=== PATIENT | male | born 1945 | race Two or more races ===

== ENCOUNTER 2022-01-15 11:31 | Observation (INO) | payer MEDICARE ==
[~2022-01-15] VITALS: Ht 167.6 cm; Wt 54.4 kg
[2022-01-15 13:09] LABS: Albumin, Blood 2.3 g/dL (3.4-5.0); Albumin/Globulin Ratio 0.8 (0.8-1.8); Bilirubin, Total 0.5 mg/dL (0.1-1.0); Bun/Creatinine Ratio 17.6 (12.0-20.0); Calcium, Blood 8.4 mg/dL (8.5-10.1); Creatinine, Blood 0.85 mg/dL (0.60-1.20); Magnesium, Blood 2.7 mg/dL (1.6-2.4); Potassium, Blood 3.6 mmol/L (3.5-5.5); Thyroid Stimulating Hormone 0.612 uIU/mL (0.360-4.800); Total Protein, Blood 5.3 g/dL (6.4-8.2)
[2022-01-15 13:17] LABS: BASOPHILS ABSOLUTE AUTO 0.03 K/mm3 (0.00-0.23); BASOPHILS PERCENT AUTO 0 % (0-2); EOSINOPHILS PERCENT AUTO 0 % (0-6); Hematocrit 44.1 % (37.0-53.0); Hemoglobin 14.5 g/dL (13.5-17.5); IMMATURE GRAN ABSOLUTE AUTO 0.08 K/mm3 (0.00-0.10); IMMATURE GRAN PERCENT AUTO 1 % (0-1); LYMPHOCYTES ABSOLUTE AUTO 0.68 K/mm3 (0.84-5.20); LYMPHOCYTES PERCENT AUTO 6 % (21-46); MONOCYTES ABSOLUTE AUTO 0.79 K/mm3 (0.16-1.47); MONOCYTES PERCENT AUTO 7 % (4-13); Mean Corpuscular HGB 31.1 pg (26.0-34.0); Mean Corpuscular HGB Conc 32.9 g/dL (31.5-36.5); Mean Corpuscular Volume 95 fL (80-100); Mean Platelet Volume 10.4 fL (9.1-12.4); NEUTROPHILS ABSOLUTE AUTO 9.48 K/mm3 (1.96-9.15); NEUTROPHILS PERCENT AUTO 86 % (41-73); Platelet Count 232 K/mm3 (150-400); RDW Coefficient Variation 14.8 % (11.7-14.2); RDW Standard Deviation 51.9 fL (35.1-46.3); Red Blood Cell Count 4.66 M/mm3 (4.30-5.90); White Blood Cell Count 11.06 K/mm3 (4.00-11.30)
[2022-01-15 13:30] LABS: Source, Urine Foley catheter
[2022-01-15 13:41] LABS: Appearance, Urine Hazy (Clear); Bilirubin, Urine Neg (Neg); Blood, Urine 3+ (Neg); Color, Urine Yellow (P-Yellow); Glucose Qualitative, Urine Neg (Neg); Ketones, Urine 1+ (Neg); Leukocyte Esterase, Urine Neg (Neg); Nitrite, Urine Neg (Neg); Protein, Urine 1+ (Neg); Urobilinogen, Urine NORM (Normal)
[2022-01-15 14:37] LABS: Renal Epithelial Few /hpf (0-Rare); Squamous Epithelial Cells Few /hpf (Few)
[2022-01-15 14:38] LABS: Mucus Light (0-Heavy)
[2022-01-15 14:39] LABS: Bacteria Few /hpf
[2022-01-15] MEDS ORDERED: METO100 PO (18:37)
[2022-01-15] MEDS ORDERED: ADALAT CC60 M1 PO (18:38)
[2022-01-15] MEDS ORDERED: LIPITOR80 MG PO ×2 (18:38)
--- NOTE | 2022-01-15 23:00 | NUR ---
PT ARRIVED TO THE FLOOR VIA GURNEY D/T GENERALIZED WEAKNESS. HE IS A/OX 2-3, AND WAS ABLE TO ANSWER SOME QUESTIONS, BUT NOT A GREAT HISTORIAN. PT DID NOT HAVE ANY C/O PAIN, SOB, NAUSEA, OR DIZZINESS, BUT DID HAVE C/O COLDNESS. HE INITIALLY WAS IMPULSIVE TRYING TO GET OOB, BUT SOON WAS CALM. ALTHOUGH CONFUSED, HE IS REDIRECTABLE AND FOLLOWS DIRECTIONS. AT THIS POINT, HE NEEDS TO BE A 2 PA, GAIT BELT, W/ FWW FOR ANY AMBULATION. INTEGUMENT IS FRAILE, BLE SCALING, AND SOME SMALL BLISTERS ON HIS RIGHT ROCHA. THERE ARE ALSO SOME REDDENED SPOTS DOWN HIS SPINE. LOWER EXTRMITIES HAVE SOME 1+ EDEMA. THE PT DID HAVE SOME INCONTINENCE, BUT WAS CLEANED UP AND NOW RESTING. THE BED IS IN THE LOWEST POSITION AND ALARM IS SET FOR PT SAFETY. WE'LL CONTINUE TO MONITOR.
[2022-01-16 05:20] LABS: BASOPHILS ABSOLUTE AUTO 0.06 K/mm3 (0.00-0.23); BASOPHILS PERCENT AUTO 1 % (0-2); EOSINOPHILS ABSOLUTE AUTO 0.01 K/mm3 (0.00-0.68); EOSINOPHILS PERCENT AUTO 0 % (0-6); Hematocrit 39.2 % (37.0-53.0); Hemoglobin 12.9 g/dL (13.5-17.5); IMMATURE GRAN ABSOLUTE AUTO 0.05 K/mm3 (0.00-0.10); IMMATURE GRAN PERCENT AUTO 1 % (0-1); LYMPHOCYTES ABSOLUTE AUTO 1.13 K/mm3 (0.84-5.20); LYMPHOCYTES PERCENT AUTO 11 % (21-46); MONOCYTES ABSOLUTE AUTO 0.87 K/mm3 (0.16-1.47); MONOCYTES PERCENT AUTO 8 % (4-13); Mean Corpuscular HGB 31.1 pg (26.0-34.0); Mean Corpuscular HGB Conc 32.9 g/dL (31.5-36.5); Mean Corpuscular Volume 95 fL (80-100); Mean Platelet Volume 10.9 fL (9.1-12.4); NEUTROPHILS ABSOLUTE AUTO 8.21 K/mm3 (1.96-9.15); NEUTROPHILS PERCENT AUTO 80 % (41-73); Platelet Count 230 K/mm3 (150-400); RDW Coefficient Variation 14.6 % (11.7-14.2); Red Blood Cell Count 4.15 M/mm3 (4.30-5.90); White Blood Cell Count 10.33 K/mm3 (4.00-11.30)
[2022-01-16 06:00] LABS: Albumin/Globulin Ratio 0.7 (0.8-1.8); Bilirubin, Total 0.8 mg/dL (0.1-1.0); Bun/Creatinine Ratio 17.5 (12.0-20.0); Calcium, Blood 7.9 mg/dL (8.5-10.1); Creatinine, Blood 0.86 mg/dL (0.60-1.20); Potassium, Blood 2.9 mmol/L (3.5-5.5)
--- NOTE | 2022-01-16 06:02 | NUR ---
SHIFT SUMMARY: PT DID NOT HAVE ANY CHANGES SINCE ADMISSION AROUND 2300 01/18. HE DID HAVE ONE OCCURRENCE OF INCONTINENCE AND A FULL BED CHANGE WAS DONE. PT REMAINS VERY FATIGUED. BED ALARM IS SET AND WE'LL CONTINUE TO DO FREQUENT MONITORING.
--- NOTE | 2022-01-16 17:23 | NUR ---
SHIFT SUMMARY PATIENT DENIES PAIN, NAUSEA, AND SHORTNESS OF BREATH. PATIENT IS A ONE PERSON FWW FOR TRANSFERS. PATIENT WORKED WITH PT, BUT DID NOT WANT TO AMBULATE. LATER IN DAY, PATIENT WOULD GET UP AND AMBULATE TO BATHROOM WITHOUT USING CALL LIGHT. PATIENT GAIT IS WEAK AND UNSTEADY. PATIENT CAN BE HARD TO REDIRECT. PATIENT EDUCATED ON USE OF CALL LIGHT USE. PATIENT A&O TO SELF FOR MOST OF SHIFT. PATIENT COULD OCCASSIONALLY TELL ME HE WAS IN [place] [address]. PATIENT IS EATING AND DRINKING WELL. PATIENT IS PLEASANT AND COOPERATIVE WITH CARE.
--- NOTE | 2022-01-17 05:05 | NUR ---
SHIFT SUMMARY: PT IS A/OX SELF. HE DOES HAVE SOME SMALL, COHERENT CONVERSATION, BUT SOME NON-SENSICAL CONVO ALSO. HE IS MUCH MORE STEADY ON HIS FEET, BUT FOR SAFETY REASONS NEEDS A SBA AND FWW TO THE BR. HE DOES NOT USE HIS CALL LIGHT AND CAN BE QUICK TO GET UP WHEN HE NEEDS TO VOID. A NEW IV WAS INSERTED IN HIS RT. FOREARM, THE TWO PREVIOUS IV'S WERE REMOVED THIS SHIFT. THE PT'S METOPROLOL WAS HELD @ 2100 D/T A LOW SYSTOLIC BP AND THE TABLET IS IN THE PT MEDICATION DRAWER. THE BED IS IN THE LOWEST POSITION AND THE ALRM IS SET.
[2022-01-17 05:40] LABS: Bun/Creatinine Ratio 24.5 (12.0-20.0); Calcium, Blood 7.8 mg/dL (8.5-10.1); Creatinine, Blood 0.82 mg/dL (0.60-1.20); Potassium, Blood 3.1 mmol/L (3.5-5.5)
--- NOTE | 2022-01-17 18:17 | NUR ---
CHANGED ROOM/SHIFT SUMMARY PATIENT DENIES PAIN, NAUSEA, AND SHORTNESS OF BREATH. EARLY IN THE SHIFT PATIENT CONTINUED TO GET OUT OF BED AND WALK AROUND. PATIENT UNSTEADY. PATIENT WAS VERY HARD TO REDIRECT. NOTIFIED. NEW ORDERS. PATIENT EDUCATED PUNCHBOARD ASSEMBLER LIGHT USE. PATIENT CONTINUED TO GET OUT OF BED WITHOUT CALLING. PATIENT CONTINUED TO GET OUT OF BED IN AFTERNOON. PATIENT VERY DIFFICULT TO REDIRECT, PATIENT DOES NOT FOLLOW DIRECTIONS. PATIENT IS A&O TO SELF. PATIENT PULLING AT IV. MEDICATED WITH PRN. PATIENT IS EATING AND DRINKING WELL. PATIENT IS VERY PLEASANT. MOVED TO ROOM 346, REPORT GIVEN TO PRABHU HAYDEN. BELONGINGS SENT WITH PATIENT. IV INTACT AND INFUSING.
--- NOTE | 2022-01-17 18:29 | NUR ---
SHIFT SUMMARY: ASSUMED CARE OF PATIENT UPON HIS TRANSFER FROM ROOM 310. RECEIVED REPORT FROM Clotilde LEE RN. PATIENT IS A&O TO SELF, PLEASANT. D5W+0.45 NS INFUSING AT 75 ML/HR. SETTLED IN TO NEW ROOM, CALL LIGHT IN REACH.
--- NOTE | 2022-01-18 03:58 | NUR ---
SHIFT SUMMARY 76 YR M ADMITTED ON 12/15/21 FOR ALTERED LEVEL OF CONCIOUSNESS. FULL CODE. PT HAS SLEPT FOR MOST OF THIS SHIFT. HE IMPULSIVELY GOT OUT OF BED TWICE TO USE THE RESTROOM BUT WAS OTHERWISE COOPERATIVE AND PLEASANT. HE IS ORIENTED TO SELF BUT OTHERWISE SEEMS CONFUSED. BED IN LOW POSITION AND CALL LIGHT WITHIN REACH. HE WILL BE WAITING FOR PLACEMENT.
[2022-01-18 05:31] LABS: Bun/Creatinine Ratio 17.5 (12.0-20.0); Calcium, Blood 7.7 mg/dL (8.5-10.1); Creatinine, Blood 0.68 mg/dL (0.60-1.20); Potassium, Blood 3.5 mmol/L (3.5-5.5)
--- NOTE | 2022-01-18 10:55 | NUR ---
STATES LEG PAIN, BUT REFUSED PAIN MED. STATES IS TOLERABLE
--- NOTE | 2022-01-18 16:46 | NUR ---
PT MOSTLY PLEASANT TODYA. HAS ASKED REPEATEDLY FOR HIS SWEATER/JACKET. THIS HAS BEEN LOCKED IN HIS CLOSET, IT IS STRONG WITH URINE SMELL. HE CONTINUES TO TRY TO GET IT FROM THE CLOSET, EVEN AFTER HE SMELLS IT IS URINE SOAKED. IT WOULD BE TOO MUCH HEALTH RISK TO WEAR THIS AT THIS TIME. NO OTHER CONCERNS NOTED. EKG RUN PER DR YORK AND RESULTS CALLED TO DR. WASHINGTON IN LOW POISITION, CALL LITE IN REACH, BED ALARM ON FOR ELSI
--- NOTE | 2022-01-19 04:10 | NUR ---
SHIFT SUMMARY ADMITTED FOR AMS. FULL CODE. PLAN IS FOR PLACEMENT. A&O TO SELF ONLY. DEHYDRATED & HYPERNATREMIC. AWAITING MORNING LABS. PT IS CONFUSED AND IMPULSIVE. PT DOES NOT CALL FOR ASSISTANCE OR USE CALL BUTTON. PT PULLED IV OUT AGAIN. NEW IV PLACED PT IS RECEIVING IV FLUIDS. PT FREQUENTLY EXITS THE BED TO USE THE RESTROOM - URGENCY & FREQUENCY NOTED. URINE IS EXTREMELY STRONG SMELLING.
[2022-01-19 05:57] LABS: Bun/Creatinine Ratio 14.3 (12.0-20.0); Calcium, Blood 7.6 mg/dL (8.5-10.1); Creatinine, Blood 0.77 mg/dL (0.60-1.20); Potassium, Blood 3.8 mmol/L (3.5-5.5); Prealbumin, Blood 13.5 mg/dL (20.0-40.0)
--- NOTE | 2022-01-19 18:42 | NUR ---
PATIENT IS ALERT AND ORIENTED TO SELF AND FOLLOWING DIRECTIONS. HE IS IMPULSIVE AND WILL GET OOB WITHOUT ASSISTANCE. MEPILEX WAS PLACED ON BOTH OF HIS HEELS. SHOWERED TODAY. NO NEW CONCERNS TODAY. WILL CONTINUE TO MONITOR
--- NOTE | 2022-01-20 03:26 | NUR ---
BRAKE LINING DRILLER SUMMARY PT AAO TO SELF ONLY, FOLLOWS DIRECTION AT TIMES BUT IS OFTEN DIFFICULT TO REDIRECT WHEN PT IS FOCUSED ON SOMETHING. BED ALARM ON FOR SAFETY PT IS IMPULSIVE AND ATTEMPTS TO GET OOB REGULARLY WITHOUT ASSIST. PT IS FAIRLY STEADY ON HIS FEET BUT REQUIRES ASSIST WITH HIS IV PUMP PT WILL ATTEMPT TO WALK AROUND WITH NO REGARD TO IV LINE. PT HAS VOIDED MULTIPLE TIMES TONIGHT WELL HAD A BM. VSS, WILL CONTINUE TO MONITOR.
--- NOTE | 2022-01-20 17:40 | NUR ---
SHIFT SUMMARY PATIENT ALERT AND ORIENTED TO SELF, PLEASANTLY CONFUSED. PATIENT HAS BEEN TRYING TO LOCATE THEIR SHIRT AND TRAILOR TODAY. PATIENT WILL GET OUT OF BED WITHOUT CALLING. PRETTY STEADY ON THEIR FEET. PATIENT HAD A COGNITIVE SCREEN TODAY BY OT. NO ACUTE CHANGES. PATIENT CURRENTLY IN BED. CALL LIGHT WITHIN REACH. BED ALARM ON.
--- NOTE | 2022-01-20 22:45 | NUR ---
PATIENT HAS BEEN ORIENTED ONLY TO SELF AND IS MORE DIFFICULT TO REDIRECT. HE IS SETTING OFF THE BED ALARM EVERY 5-10 MINUTES. MOST OFTEN THE PATIENT DOES NOT HAVE ANY REASON FOR GETTING OOB. HE IS NOW WANDERING THE HALLWAY AND TRYING TO GO INTO OTHER PT'S ROOMS. IT TOOK TWO RNs TO REDIRECT HIM BACK TO HIS ROOM AND WITHIN MINUTES OF BEING BACK IN BED HE WAS UP AGAIN. DUE TO POSSIBLE INJURY TO HIMSELF, INJURY TO STAFF, AND NOT BEING REDIRECTABLE AN ORDER FOR A MARY VEST WAS INITIATED. THE RN AND PUPIL PERSONNEL WORKER WILL CONTINUE TO MONITOR.
--- NOTE | 2022-01-21 01:00 | NUR ---
THE PT CONTINUES TO TRY TO GET OOB WITH THE MARY VEST IN PLACE. HE IS NOW ATTEMPTING TO UNTIE THE VEST FROM THE BED. A NEW ORDER FOR SOFT RESTRAINTS IS IN PLACE. WE'LL CONTINUE TO MONITOR PT THE REMAINDER OF THE SHIFT.
--- NOTE | 2022-01-21 05:30 | NUR ---
SHIFT SUMMARY: PT IS PLEASANTLY CONFUSED (A/OX1), BUT IS BECOMING MORE DIFFICULT TO REDIRECT. HE WILL GET OOB AND WANDER; AT TIMES HE TRIES TO GO INTO OTHER PATIENT'S ROOMS. HE DID INITIALLY REQUIRE A MARY VEST, BUT ATTEMPTED TO UNTIE IT FROM THE BED. A NEW ORDER WAS PUT IN FOR SOFT WRIST, 4 RAILS AND A MARY. HE DOES HAVE MEPILEX DRESSINGS ON HIS HEELS BILATERALLY THAT ARE CDI. HIS BED IS IN THE LOWEST POSITION AND THE ALARM IS SET FOR SAFETY.
--- NOTE | 2022-01-21 16:19 | NUR ---
SHIFT SUMMARY THE PATIENT IS ALERT TO SELF, PLEASANT AND COOPERATIVE WITH CARE. REDIRECTABLE, BUT DOES BECOME FIXATED ON TASKS. PATIENT DOES NOT CALL APPROPRIATELY. THE PATIENT TAKES MEDS WHOLE WITH WATER. CONTINENT/ INCONTINENT MEPILIX REPLACED ON COCCYX AND HEELS TODAY. PATIENT HAS OVERGROWN TOE NAILS. THE PATIENT HAD A HARD TIME SLEEPING LAST NIGHT. PRN SEROQUEL GIVEN THIS AM, PATIENT HAS SLEPT VERY LITTLE. NO ACUTE CHANGES. BED IN LOWEST POSITION, AND BED ALARM IS ON.
--- NOTE | 2022-01-22 05:30 | NUR ---
SHIFT SUMMARY PT HAS BEEN VERY AGITATED ALL NIGHTS. HE RECIEVED HIS SEROQUEL, BUT WAS STILL UNCOOPRATIVE AND WAS IN SOFT WRIST RESTRAINTS FOR AN HOUR. WE THEN TOOK THEM OFF AND HE IS UNABLE TO SIT STILL AND MUST CONSTANTLY BE REMINDED TO STOP WIGGLING OUT OF HIS POSY AND DANGLING HIS FETT. HE IS COMBATIVE AND NOT REDIRECTABLE.
--- NOTE | 2022-01-22 16:10 | NUR ---
DAYSHIFT SUMMARY No acute changes to patient status this shift, awaiting decision for placement or DC home. Patient oriented to self, cooperative, pleasant this shift. Removed dav restraints this morning, pt uses call-light sometimes, but gets OOB without help. Steady on feet, wants staff to encourage pt to get out of room & walk hallway. No behaviors observed this shift. Vitals stable, no other concerns at this time.
--- NOTE | 2022-01-22 20:06 | NUR ---
PT BEGAN SHIFT VERY IRRITATED. WLAKING AROUND HALLS TRYING TO ENTER OTHER PTS ROOMS. NOT REDIRECTABLE, PUSHED BACK AGAISNT STAFF WHEN THEY ATTEMPT TO HELP HIM BACK TO HIS ROOM. ORDERED ZYPREXA PRN FOR AGITATIONS. WILL CONTINUE TO GAUGE BEHAVIORAL ISSUES
--- NOTE | 2022-01-23 04:52 | NUR ---
SHIFT SUMMARY PT HAS BEEN AGITATED THIS EVENING AND WAS IN RESTRAINTS UNTIL 0000. HE HAS BEEN UP FREQUENTLY WANDERING AROUND THIS EVENING, BUT RETURNS TO BED STATING HE IS COLD. SEE NOT ABOUT SEDATION. HE IS AXO TO SELF.AWAITING PLACEMENT AND POSSIBLE GAURDIANSHIP.
[2022-01-23 12:14] LABS: Bun/Creatinine Ratio 17.4 (12.0-20.0); Calcium, Blood 8.5 mg/dL (8.5-10.1); Creatinine, Blood 0.69 mg/dL (0.60-1.20); Potassium, Blood 3.3 mmol/L (3.5-5.5)
--- NOTE | 2022-01-23 16:40 | NUR ---
DAYSHIFT SUMMARY optical glass silverer reported patient was awake most night, wandering/unable to redirect behaviors. Patient sleeping comfortably this morning, he got up late this morning and had breakfast. Patient cooperative & pleasant during the day, occasionally will try wandering into other rooms, and staff redirect. Reported differences in behaviors to MD. MD SANTOS'd Seroquel & ordered Zyprexa PO HS. No acute changes to patient status, awaiting placement. Vitals stable.
--- NOTE | 2022-01-24 03:05 | NUR ---
Pt has been reported to have severe Sundowning by day shift & he bagan intrusive wandering prior to HS meds. Gave 5 mg odt zyprexa for aggitated wandering. Within 2 hours PT was wandering & was unredirectable despite several staff attempting to get PT to go back to his own room as he was very aggressivly trying to enter a droplet contact isolation room, also attempting to leave special care unit pushing on locked door to leave. PT had to be physically escorted back to his own room. He did not attempt to assult staff as they escorted him gently but firmly to own room. Hospitalist TECHNICAL INSPECTOR Sinpu contacted & order to give 2.5 mg iv haldol then repeat 2.5 mg IV haldol 20 mins later if PT still agitated. RX given x 2 for total of 5 mg IV haldol & PT still up & down in room multiple times but no attempts to leave his room. He was up to the bathroom multiple times to void. drank ensure shake with setup & ate snacks. Bed alarm set due to PT saying he feels weak, assisted with tioleting & pullups change. Medicated for CO gen pain with tylenol 650 mg with helpful effect. Resting quietly with fall & wandering precautions in place. PT says he is [place] but denied services. PT states hx of several recent strokes but no hemiplegigia noted. Also says his ex significant other left him after strokes. Unsure of support system but PT very emaciated with malnutrition listed as diagnosis. He had 2 ensures on dinner tray & drank both.
[2022-01-24 12:43] LABS: Calcium, Blood 8.7 mg/dL (8.5-10.1); Creatinine, Blood 0.65 mg/dL (0.60-1.20); Magnesium, Blood 2.1 mg/dL (1.6-2.4)
--- NOTE | 2022-01-24 18:19 | NUR ---
SHIFT SUMMARY: PT A/O TO SELF ONLY THROUGHOUT THE DAY. PT WAS SLEEPY THIS MORNING BUT ONCE AWAKE HE WAS RE-ORIENTED AND WAS PLEASANT AND COOPERATIVE WITH CARES. HE IS STABLE ON HIS FEET AND IS STANDBY ASSIST FOR SAFETY. HE IS EATING WELL AND DRINKING FLUIDS WELL. PT WAS WORRIED ABOUT GETTING A PACK OF CIGARETTES TODAY AND ORDER FOR NICOTINE PATCH RECIEVED AFTER EXPLAINING TO PT THIS IS NON SMOKING CAMPUS AND PT AGREED TO PATCH. AROUND 5 PM PT BEGAN USING CALL LIGHT EXCESSIVELY REQUESTING TO TALK TO DR. CHAUHAN. WHEN ASKED WHAT HIS CONCERNS WERE HE KEPT SAYING HE NEEDED TO TALK TO HER AND ALSO THAT HE NEEDED TO GO GET A PACK OF CIGARETTES. PT REMINDED HE HAD A NICOTINE PATCH AND HE APPEARED TO BE APPEASED BY EXPLANATION BUT THEN WOULD USE CALL LIGHT WITHIN 10 MINUTES REQUESTING THE SAME INFORMATION. PT ASSESSED FOR PAIN AND HE REPORTED HE HAD 10/10 PAIN "ALL OVER". PAINAD WAS 4/10 DUE TO REPORTED PAIN AND FURROWED BROW. PT MEDICATED WITH TYLENOL AND ALSO GAVE OLANZAPINE SCHEDULED AT 1900 DUE TO S/S OF AGITATION. PT EATING DINNER AT THIS TIME AND IS CALM AND HAS NOT BEEN REQUESTING FURTHER CONTACT WITH DR. CHAUHAN AT THIS TIME.
--- NOTE | 2022-01-25 06:23 | NUR ---
76 year old MAle dmitted on January 15 with global weakness, AMS, malnutrition, & he has had intrusive wandering behaviors decreased over prior 24 hours on secure unit with PT with random nonpurposeful repeated entering into others rooms & has no reasson for doing so but he had been slightly more redirectable. PT on remote camera monitoring & closed door& posted signs to alert PT where his room is with much decreased wanderings. PT is taking supplements ensure well & he takes snacks. Bowel care given with effect.
--- NOTE | 2022-01-25 16:17 | NUR ---
SHIFT SUMMARY A/O TO SELF ONLY, CALM AND COOPERATIVE WITH CARE THIS SHIFT. UP AMBULATING HALLS WITH FWW. EASILY REDIRECTED. DENIES PAIN OR SOB. VSS, NO ACUTE CHANGES AT THIS TIME. BED IN LOWEST POSITION WITH CALL LIGHT IN REACH. WILL CONTINUE TO MONITOR AND REPORT TO ONCOMING RN.
--- NOTE | 2022-01-26 13:00 | NUR ---
Pt resting in bed eating his lunch. Pt is pleasanly confused and A&OX1. Offered supportive listening. Pt reports no family. Spoke with Primary RN Rena and discussed case. Spoke with Caremanager Director and discussed case as SW not available at this time. Palliative Care will remain available.
--- NOTE | 2022-01-26 16:12 | NUR ---
[facility] FAXED PER DR CHAUHAN.
--- NOTE | 2022-01-26 17:25 | NUR ---
SHIFT SUMMARY- PT A/O TO SELF AND TOWN. PT DENIES ANY COMPLAINTS T/O THE DAY. PT HAS BEEN PLEASANT AND REDIRECTABLE. PT WANDERS IN ROOM AND HALLS. KAELYN ROSENBAUM, ON RA. [facility] PT STARTED ON AN ADDITIONAL ZYPREXA AT 1400 TODAY. NO IV ACCESS. NO OTHER ACUTE CHANGES THIS SHIFT.
--- NOTE | 2022-01-27 05:22 | NUR ---
PT continues in secure unit with intermittant intrusive wandering that is very difficult to redirect. He does not become violent but assumes aggressive stance & needs to be removed gently from targeted place. He continues to have good appetite & has steady gait indep on unit. Poor safety awareness. Cooperative with medications. Focused on getting to his dirty clothes that are secured in locked closet but does redirect. Provided with clean scrub set & he is able to dress self neatly. PT provided with 2 phone numbers one of Fredis lambert who has offered support & the phone number where he had just moved into [facility]. Staff can assist to call either phone number today. Medical records from [facility]iology in [place] arrived & are on chart.
--- NOTE | 2022-01-27 16:54 | NUR ---
SHIFT SUMMARY- PT PLEASANT AND COOPERATIVE WITH CARE. PT SLEPT IN AM UNTIL 11AM. DR DISCUSSED ADJUSTING MEDS TO REDUCE NOCTURAL AROUSAL. PT ASKING TO WASH CLOTHES AND LEAVE TO HIS TRAILOR X 5 OR MORE, CONFUSED AT TIMES BUT EASLIY REDIRECTED. PT COPLIANT WITH MEDICATIONS ADMINISTERATION AND ALL CARE GIVEN. VSS. PT INDEPENDANT IN ROOM, COMES OUT TO CARDENAS AT TIMES TO BE SOCIAL. PT APPETITE GOOD. PT RESTING NOW WITH CALL LIGHT WITHIN REACH.
--- NOTE | 2022-01-28 04:43 | NUR ---
pt up ambulating in halls, easily redirectable. attempted to leave unit and go in other patients rooms several time. pt incontinent of urine in bed and soiled clothes. pt cleaned up with new linens.
--- NOTE | 2022-01-28 16:46 | NUR ---
NO ACUTE CHANGES. PT IS INDEPENDENT AND WILL WALK AROUND IN CARDENAS. PT CAN MAKE SOME NEEDS KNOWN. PT HAS BEEN INCONTENT OF URINE AND NEEDED ENCOURAGEMENT TO GET CLEANED UP. NO DISTRESS NOTED AT THIS TIME WILL CONTINUE TO MONITOR.
--- NOTE | 2022-01-29 05:10 | NUR ---
PT RESISTANT TO CHANGING UNDERWEAR FOR DAY SHIFT. RETANNER REQUESTED MULTIPLE TIMES FOR PATIENT TO CHANGE DEPENDS. PT STATES HE HAS BUT NO DIRTY DEPENDS FOUND IN ROOM. PT STAYED IN ROOM MOST OF THE NIGHT WANDERING IN ROOM WITH LIGHT OFF. PT REQUESTING TO GET IN HIS CABINET SO HE CAN GET BACK TO HIS RV.
[2022-01-29 08:59] LABS: Bun/Creatinine Ratio 31.8 (12.0-20.0); Calcium, Blood 8.5 mg/dL (8.5-10.1); Creatinine, Blood 0.66 mg/dL (0.60-1.20); Potassium, Blood 3.8 mmol/L (3.5-5.5)
--- NOTE | 2022-01-29 17:06 | NUR ---
SHIFT SUMMARY 76 Y MALE ADMITTED WITH ALTERED LEVEL OF CONSCIOUSNESS. PT HAS BEEN A&O T/O DAY, PLEASANT AND COOPERATIVE WITH CARE. PT DID HAVE A FEW MOMENTS OF CONFUSION TODAY STATING THAT HE NEEDED TO GO AND FIND HIS TRUCK AND GO TO TOWN BEFORE HE WOULD TAKE A SHOWER. REORIENTED PT TO HOSPITAL SETTING AND HE WAS THEN AGREABLE TO SHOWER. PT UP WITH PT/OT TODAY AND TOLERATED WELL AND THERAPY STATES NO FURTHER NEED IDENTIFIED. DR. CHAUHAN REPORTS SHE IS ADJUSTING SOME MORE OF HIS NIGHT TIME MEDS TO SEE IF HE CAN BE SAFE TO D/C BACK HOME ALONE VS NEEDING LT MEMORY CARE. CARE MGMT INVOLVED IN D/C PLANNING. NO OTHER CHANGES TO REPORT THIS SHIFT.
--- NOTE | 2022-01-30 04:56 | NUR ---
PT CONTINUES TO HAVE POOR AWARENESS OF HYGIENE. WALKS AROUND IN URINE SOAKED CLOTHING AND NEEDS LOTS OF PROMPTING TO BE CHANGED. PT IS MORE CONFUSED AT NIGHT, STATING HE IS GOING TO [place] IN THE MORNING TO GET CIGGARETTS. PT WAS ABLE TO SLEEP FROM MIDNIGHT TILL ABOUT 430 IN THE MORNING.
--- NOTE | 2022-01-30 19:30 | NUR ---
SHIFT SUMMARY PATIENT IS PLEASANTLY CONFUSED. INDEPENDENT IN ROOM. PATIENT WILL WANDER HALLS AND INTO OTHER PATIENTS ROOMS. INCONT AT TIMES. POOR HYGEINE AND IS NOT BOTHERED ABOUT CLOTHING BEING SOILED WITH URINE. NEEDS ENCOURAGEMENT TO CLEAN UP. REPORT GIVEN TO ONCOMING RN.
--- NOTE | 2022-01-31 03:02 | NUR ---
ACTIMIZE ARCHITECT SUMMARY FIRST HALF OF THE SHIFT OR SO, WANDERING ABOUT HALLWAY, INTO OTHER PTS ROOMS AND NEEDING TO BE REDIRECTED OFTEN. EVENTUALLY PACING ABOUT STATING HIS FOOT WAS HURTING. NAPROSYN GIVEN, LATER STATED IT WAS HURTING AGAIN. CALL PLACED TO MD FOR ANALGESIC. ROXICODONE ORDERED, BUT PT WAS ASLEEP WHEN MED OBTAINED. HAS BEEN RSTING QUIETLY WITHOUT NOTED INTERRUPTIONS OR DISTRESS SINCE. CALL LIGHT IN REACH
--- NOTE | 2022-01-31 06:07 | NUR ---
NO FURTHER COMPLAINTS OF PAIN VOICED. HAD BEEN SLEEPING QUIETLY. OXYCODONE NOT GIVEN. WILL CONTINUE TO MONITOR
--- NOTE | 2022-01-31 07:30 | NUR ---
ASSUMED CARE AT 0700. REPORT RECEIVED. PATIENT IS CURRENTLY SLEEPING. WILL CONT TO MONITOR.
--- NOTE | 2022-01-31 18:31 | NUR ---
SHIFT SUMMARY NO ACUTE CHANGES THIS SHIFT. PATIENT IS ORIENTED TO HIMSELF AND HIS SURROUNDING. HE WAS CALM AND COOPERATIVE WITH CARE. PATIENT IS AWAITING DC PLANNING WITH CARE MANAGEMENT. HE IS INDEPENDENT ON THE UNIT WITH CAMERA MONITORING. NO WANDERING INTO OTHER ROOMS, NO NEED TO REDIRECT THIS SHIFT. WILL CONT TO MONITOR UNTIL REPORT GIVEN TO WOOD FINISHER.
--- NOTE | 2022-01-31 21:48 | NUR ---
WANDERS HALLWAY. TALKATIVE, VOICED LIKES HENRRY CRACKER SNACK. PAIN MED EFFECTIVE, NO LONGER VOICED PAIN. RETRNS TO ROOM. CALL LIGHT IN REACH
--- NOTE | 2022-02-01 04:22 | NUR ---
HEAT TREATING OPERATOR SUMMARY UP AND DOWN FIRST HALF OF SHIFT AFTER HS. VOICED HUNGER AND DESIRE FOR HENRRY CRACKERS FOR SNACKS. AFFECT CHEERFUL. SOME APPARENT CONFUSION WITH CONVERSATIONS AT TIMES. ATTEMPTED TO PUSH OUT THE LOCKED DOORS BUT WAS REDIRECTED BY STAFF. CURRENTLY RESTING QUIETLY IN BED. CALL LIGHT IN REACH
--- NOTE | 2022-02-01 13:53 | NUR ---
SHIFT SUMMARY PT RESTING QUIETLY, DURING SHIFT REPORT. NO C/O. UP INDEPENDENTLY TO BTHRM AND OUT TO CARDENAS TO SIT IN CHAIR. PT AMBULATED IN CARDENAS AND DOWN TO [place] FOR A WHILE. PER SHIFT REPORT, PT WAITING FOR GUARDIANSHIP AND PLACEMENT. MEDICATED PER EMAR FOR C/O PAIN "EVERYWHERE". PT HAS BEEN PLEASANT AND CO-OP WITH CARE. PICTURE UPDATED ON SM WOUND TO R BUTTOCKS. DENIES FURTHER NEEDS AT THIS TIME. CALL LT IN REACH. ABLE TO MAKE NEEDS KNOWN.
--- NOTE | 2022-02-02 03:45 | NUR ---
VIDEO NETWORK ENGINEER SUMMARY TOLERATED HS MEDS AND SAID HE WAS IN PAIN. MD NOTIFIED AND OXUCODONE 5 MG PO ORDERED AND GIVEN. SEEMED TO WORK HE WENT TO BED AND QUIETLY WATCHED TV. LATER, CAME OUT OF ROOM SEVERAL TIMES, WANDERING HALLWAY AND ASKED FOR SNACKS "HENRRY CRACKERS", ETC. HAS NEEDED TO BE REDIRECTED BACK TO ROOM THROUGH NIGHT HE SEEMS TO HAVE A TENDENCY TO WALK INTO OTHER PTS ROOMS. CURRENTLY IN HIS ROOM. CALL LIGHT IN REACH
--- NOTE | 2022-02-02 13:49 | NUR ---
SHIFT SUMMARY NO ACUTE CHANGES TO PRESENT THIS SHIFT. PT RESTING QUIETLY AT START OF SHIFT. WOKE FOR BREAKFAST THIS AM, FOUND TO BE INCONTINENT OF URINE. BED LINEN AND CLOTHES CHANGED. LIGHT TRUCK DRIVER PREPARED PT FOR SHOWER, BUT THEN PT REFUSED. PT HAS REMAINED IN HIS RM TO PRESENT TODAY; NOT WANDERING HALLS YET THIS SHIFT. SITTING IN CHAIR OR BED, WATCHING TV WHEN NOT SLEEPING. NO C/O. DENIES FURTHER NEEDS AT THIS TIME. CALL LT IN REACH.
--- NOTE | 2022-02-02 14:54 | NUR ---
1445 PT C/O PAIN TO LEFT HEEL WOUND. ABX OINTMENT AND MEPILEX HEEL DRSG PLACED.
--- NOTE | 2022-02-03 03:42 | NUR ---
PROFESSOR OF ENGLISH SUMMARY HAS BEEN RESTING QUIETLY FOR MUCH OF THE SHIFT SINCE AROUND 0000. TOLERATED A FEW SNACKS AND HAD PAIN MED X 1, AND SLEEP MED. CURRENTLY RESTING QUIETLY. VSS. DRESSINGS OF COCCYX AND BILAT HEELS INTACT
--- NOTE | 2022-02-03 16:21 | NUR ---
PT IS ALERT, COOPERATIVE ORIENTED TO SELF AND SURROUNDINGS. THE PT IS UP IND IN HIS ROOM. THE PT IS ANXIOUS AND SAYS THAT HE NEEDS TO GO TO [facility] TO GET GAS CANS AND A HACK SAW. THE HACK SAW TO TRIM HIS TOE NAILS. THE PT WAS MEDICATED FOR PAIN IN HIS TOES. PT APPEARS TO BE BREATHING EASILY ON RA AT THIS TIME. CALL LIGHT IN REACH WILL CONTINUE TO MONITOR AND ASSESS FOR CHANGES
--- NOTE | 2022-02-04 04:00 | NUR ---
SHIFT SUMMARY PT HUNGRY AND NOT TIRED. PT GIVEN SEVERAL PACKAGES OF HENRRY CRACKERS AND PT WENT BACK TO BED. PT HAS BEEN SLEEPING OFF AND ON TONIGHT. NO ACUTE CHANGES TO PT CONDITION. PT HAS NO COMPLAINTS AT THIS TIME. CALL LIGHT WITHIN REACH.
--- NOTE | 2022-02-04 17:02 | NUR ---
PT IS ALERT ORIENTED TO SELF AND SURROUNDINGS. PT IS UP IND IN THE ROOM AND HAS BEEN UP AMBULATING INTO THE CARDENAS TODAY. THE PT WAS MEDICATED FOR HE X1 SO FAR TODAY. PT APPEARS TO BE BREATHING EASILY ON RA AT THIS TIME. CALL LIGHT IN REACH, WILL CONTINUE TO MONITOR AND ASSESS FOR CHANGES
--- NOTE | 2022-02-05 04:25 | NUR ---
SHIFT SUMMARY - NO ACUTE CHANGES THROUGHOUT THIS SHIFT. PT HAD A STRONG URINE SMELL THIS AM. PT WAS UP AMBULATING IN HALLS AND IN ROOM INDEPENDENTLY, SOMETIMES WITH A WALKER, OTHER TIMES AMBULATES UNASSISTED - PT STEADY ON HIS FEET. PT REQUESTED FREQUENT SNACKS AT THE BEGINNING OF THE SHIFT - ALL PROVIDED. PT SLEPT FOR SEVERAL HOURS AFTER RESTORIL GIVEN. PT HAS BEEN APPROPRIATE WITH STAFF. PT IS AWAITING GUARDIANSHIP - CARE MANAGEMENT ON THE CASE. CALL LIGHT WITHIN REACH. FLUIDS AT BEDSIDE. BED IN LOW POSITION. WILL CONTINUE TO MONITOR UNTIL AM SHIFT CHANGE.
--- NOTE | 2022-02-05 17:25 | NUR ---
SHIFT SUMMARY- PT ALERT TO SELF AN FAMILY, INDEPENDENT IN THE HALLS AND ROOM. PT GOT UP AFTER HIS FRIEND LEFT (AFTER A MEETING WITH CARE MANAGEMENT) GT DRESSED AND TOLD THE IMPREGNATION OPERATOR HE WAS LEAVING TODAY. THE PT HAS MAINTAINED THAT HIS FRIEND IS COMING TO PICK HIM UP. THERE ARE NOT PLANS TO DC THE PT TODAY. PT WAS REORIENTED AND CONTINUED TO BE PLEASENT WITH STAFF AND DID NOT BECOME AGITATED THAT HE WAS NOT LAVING YET. PT CURRENTLY IN BED, CALL LIGHT IN REACH NO S&S OF DISTRESS, NO IV ACCESS NEEDED. PT HAS HAD NO ACUTE CHANGES T/O THE DAY, WILL CTM AND PASS ON IN BEDSIDE REPORT TO NIGHT RN.
--- NOTE | 2022-02-06 05:13 | NUR ---
SHIFT SUMMARY PATIENT ALERT AND ORIENTED X2. HAD NO COMPLAINTS OF PAIN OR SHORTNESS OF BREATH. DID NOT SLEEP MUCH AND CAME OUT OF HIS ROOM MULTIPLE TIMES OVERNIGHT ASKINGFOR SNACKS. NO ACUTE ISSUES NOTED. CALL LIGHT WITHIN REACH. REPORT GIVEN TO ONCOMING RN.
--- NOTE | 2022-02-06 17:08 | NUR ---
SHIFT SUMMARY- PT ALERT AND ORIENTED TO SELF, FAMILY AND SITUATION. PT IS FORGETFUL, MORE SO AT SOME TIMES THAN OTHERS. HE TENDS TO REPEAT HIMSELF ALOT. PT IS INDEPENDENT IN THE ROOM AND THE HALLS. CURRENTLY IN BED, CALL LIGHT IN REACH, PT HAS C/O A HEADACHE THIS EVENING MEDICATED WITH PRN MEDS TWICE. WILL CTM AND PASS ON TO NIGHT RN IN BEDSIDE REPORT. NO ACUTE CHANGES T/O THE SHIFT.
--- NOTE | 2022-02-07 06:04 | NUR ---
SHIFT SUMMARY PATIENT ALERT AND ORIENTED X2. MEDICATED PER EMAR FOR HEADACHE AND SLEEP. NO ACUTE ISSUES NOTED OVERNIGHT. CALL LIGHT WITHIN REACH. REPORT GIVEN TO ONCOMING RN.
--- NOTE | 2022-02-07 17:04 | NUR ---
SHIFT SUMMARY- PT ALERT AND ORIENTED TO SELF. PT HAS HAD A FEW INCONTINENCE EPISODES T/O THE DAY TODAY. HE SOILED HIS HOME CLOTHES AGAIN, THEY WERE PLACED IN BELONGINGS BAGS AND PUT IN THE CLOSET IN THE ROOM THAT WAS LOCKED TO PREVENT THE PT FROM PUTTING THEM BACK ON AGAIN. PT HAD A FULL SHOWER TODAY WELL. THERE WAS SOME DIFFICULTY GETTING HIM TO FOLLOW DIRECTIONS IN THE SHOWER. PT HAS BEEN INDEPENDENT IN THE ROOM AND HALLS. MEDICATED THIS MORNING FOR A SLIGHT HEADACHE THAT REOLVED WITH TYLENOL. PT HAS HAD NO OTHER ACUTE CHANGES T/O TE DAY. PT CURRENTLY SITTING UP IN THE CHAIR WAITING FOR DINNER, CALL LIGHT IN REACH NO S&S OF DISTRESS. WILL CTM AND PASS ON IN BEDSIDE REPORT.
--- NOTE | 2022-02-08 06:23 | NUR ---
SHIFT SUMMARY PATIENT ALERT AND ORIENTED X2. HAD NO COMPLAINTS OF PAIN OR SHORTNESS OF BREATH. NO ACUTE ISSUES NOTED OVERNIGHT. CALL LIGHT WITHIN REACH. REPORT GIVEN TO ONCOMING RN
--- NOTE | 2022-02-08 19:08 | NUR ---
DAY SHIFT SUMMARY 76 YR OLD MALE WITH ALTERED LOC. PT ON RA, INDEPENDENT IN ROOM, WAITHING PLACEMENT. NO ACUTE CHANGES THIS SHIFT.
--- NOTE | 2022-02-09 04:07 | NUR ---
SHIFT SUMMARY A/OX2, IND AMBULATING HALLWAY T/O SHIFT. C/O BACK PAIN, MEDICATED PER EMAR. VSS, NO ACUTE CHANGES AT THIS TIME. BED IN LOWEST POSITION WITH CALL LIGHT IN REACH. WILL CONTINUE TO MONITOR AND REPORT TO ONCOMING RN.
--- NOTE | 2022-02-09 17:11 | NUR ---
SHIFT SUMMARY PATIENT DENIES PAIN, NAUSEA, AND SHORTNESS OF BREATH. PATIENT IS IND IN HIS ROOM. PATIENT TOOK SHOWER TODAY. PATIENT SLEPT ON AND OFF THIS SHIFT. PATIENT WALKED IN HALLWAY A FEW TIMES. PATIENT IS EATING AND DRINKING WELL. PATIENT IS PLEASANT AND COOPERATIVE WITH CARE.
--- NOTE | 2022-02-10 04:11 | NUR ---
SHIFT SUMMARY ADMITTED FOR AMS. FULL CODE. PLAN IS FOR HOME W/HH VS. PLACEMENT. CARDIAC DIET. INDEPENDENT IN ROOM. CONTINENT/INCONTINENT. ON RA. REDIRECTABLE, WANDERS. PLEASANT AND COOPERATIVE WITH CARE.
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
--- NOTE | 2022-02-10 19:20 | NUR ---
SUICIDE PLAN- JERMAINE- PT'S JENY, CALLED THIS PM AND INFORMED RN THAT SHE HAD A CONVERSATION WITH PT DAYS AGO, HE STATES HE HAD A PLAN FOR SUICIDE ONCE HE GOES HOME. HE STATED HE BOUGHT 18 BOTTLES OF LIQ THC AND PLANS TO TAKE THEM ALL AT ONCE. JERMAINE WENT TO CHECK AND FOUND 18 BOTTLE OF LIQUID THC LINED UP ON A TABLE IN HIS HOUSE. SHE WANTS TO MAKE SURE THIS INFORMATION GETS TO DR MONTERROSO BEFORE EVAL TOMORROW. I ENCOURAGED HER TO CALL DR MONTERROSO IN THE AM. I INFORMED NOC RN OF THIS CONVERSATION. I WILL INITIATE CAMERA FOR ADDITIONAL OBSERVATION THROUGH THE NIGHT.
--- NOTE | 2022-02-11 04:23 | NUR ---
SHIFT SUMMARY: PATIENT IS A&O TO SELF, INDEPENDANT IN THE ROOM. APPETITE IS GOOD. REFUSES WATER, ONLY DRINKS COFFEE. VSS AND APPETITE IS GOOD.
--- NOTE | 2022-02-11 17:18 | NUR ---
SUMMARY- PT STATES LITTLE SLEEP LAST NIGHT. NAPPED DURING THE DAY. STATES HE HAD A LG SOFT BM AFTER LAX THIS AM. TOLERATING FOOD AND FLUID. INDEPENDANT IN ROOM, STEADY ON FEET. OCC WALK INTO THE HALLWAY. DR GARZA EVALUATED PT AND LETTER IN CHART FOR [employer] PROCEDINGS. PT MEDICALLY STABLE, AWAITING PROCESS OF [employer] FOR PLACEMENT.
--- NOTE | 2022-02-12 09:00 | NUR ---
PT AWAKE, PLEASANT, WITHDRAWN AT THIS TIME. ALERT TO SELF. STATES WAS A [employer]. NOT DISCUSSED JOB BEYOND THIS. PRETTY RESERVED/ HR REG, NO MURMUR NOTED. NO TELE. LUNGS CLEAR RESP EASY, UNLABORED. ON R.A. BT X4 LAST BM YEST PER PT. VOIDS PER BATHROOM. INDEPENDANT IN ROOM. BED IN LOW POSITION, CALL LITE IN REACH, CALLS APPROP.
--- NOTE | 2022-02-12 12:00 | NUR ---
PER DR RODRIGUEZ, STATES [facility] IS NOT NECESSARY ANY MORE. CANCEL/
--- NOTE | 2022-02-12 16:25 | NUR ---
PT HASA BEEN ASKING TO LEAVE THIS AFT. STATES GOING TO LEAVE. SPOKE TO DR MAE. HE ADJUSTING MEDS.
--- NOTE | 2022-02-12 19:18 | NUR ---
PT ATTEMPTING TO LEAVE MUCH OF DAY. DISCUSSED THIS WITH . HE ADJUSTED MEDS TO HOPEFULLY HELP. PT PUT ON HIS OLD URINE SOAKED PANTS . AFTER SOME TIME I WAS ABLE TO CONVINCE HIM TO TAKE THEM OFF AND REPLACE WITH OUR PJ PANTS. I LOCKED THEM IN HIS CLOSET SO HE WONT PUT ON AGAIN. NO NEW CONCERNS NOTED. BED IN LOW POSITION, CALL LITE IN REACH, CALLS APPROP
--- NOTE | 2022-02-13 04:36 | NUR ---
SHIFT SUMMARY 76 YR M ADMITTED ON 01/15/22 FOR AMS/WEAKNESS. FULL CODE. NO ACUTE CHANGES THIS SHIFT. PT HAS BEEN VERY COOPERATIVE AND HAS MADE NO ATTEMPTS TO LEAVE THE FLOOR. HE CAME OUT OF HIS ROOM SEVERAL TIMES AND ASKED FOR COFFEE BUT HE DID NOT MAKE ANY ADVANCES TOWARDS THE DOOR. HE IS VERY PLEASANT AND RESPECTFUL. HE WATCHED TV FOR MOST OF THIS SHIFT AND FINALLY WENT TO SLEEP AT APPROX 0300.
--- NOTE | 2022-02-13 09:58 | NUR ---
PT PLEASANT THIS AM. SMELLS OF URINE. HE REFUSING SHOWER THIS AM FOR ME, ALSO REFUSING TO CHANGE OR REPLACE HIS CLOTHES AT THIS TIME. AGREED TO SHOWER LATER. TOLD HIM WILL GET HIM NEW CLOTHES AFTER SHOWER. STATES LITTLE PAIN THIS AM. FEELS OKAY. H/R REG, NO MURMUR NOTED. NO TELE. LUNGS CLEAR, RESP EASY, UNLABORED. ON R/A. BT X4 LAST BM NOT KNOWN BY PT. VOIDS INDEPEDANT IN ROOM. BED IN LOW POSITION, CALL LITE IN REACH. COMES TO DOOR FOR ASSISTANCE
--- NOTE | 2022-02-13 16:26 | NUR ---
julianna came to room. brought clothes and pt had me call security and returned to him the money which patient recently gave to security , which patient gave to julianna. julianna took the money and his isiah pack home for him. patient states he is much relieved.
--- NOTE | 2022-02-13 17:50 | NUR ---
PT DOING OKAY TODAY. I CALLED FRIEND ROHITH TO BRING IN CLEAN CLOTHES AND TO TAKE HIS MONEY AND HIS MARTÍN PACK HOME. THIS WAS DONE. PT WAS VERY HAPPY TO GET NEW CLOTHES AND SEE HIS FRIEND. OLD CLOTHES SENT HOME FOR WASH. PT GOT SHOWER TODAY. NO NEW CONCERNS NOTED. BED INLOW POSITION, CALL LITE IN REACH, WALKS TO DOOR FOR NEEDS.
--- NOTE | 2022-02-14 05:13 | NUR ---
SHIFT SUMMARY 76 YR M ADMITTED ON 01/14/22 FOR AMS, WEAKNESS. FULL CODE. NO ACUTE CHANGES THIS SHIFT. PT HAD A VERY UNEVENTFUL SHIFT. HE STAYED IN HIS ROOM FOR MOST OF THE SHIFT AND CAME OUT A FEW TIMES TO ASK FOR FOOD, MAINLY HENRRY CRACKERS. HE IS VERY PLEASANT AND COOPERATIVE AND SEEMS VERY HAPPY TO HAVE CLEAN CLOTHS FROM HOME.
--- NOTE | 2022-02-14 07:44 | NUR ---
ASSUMED CARE: PT AWAKE AND AMBULATORY IN ROOM. PLEASANT AND COOPERATIVE. NO ACUTE NEEDS OR CONCERNS AT THIS TIME.
--- NOTE | 2022-02-14 17:35 | NUR ---
SHIFT SUMMARY: PT HAS BEEN INDEPENDENT IN ROOM AND IN HALLS. NO IV IN PLACE, NO PRN MEDS GIVEN. NO ACUTE NEEDS OR CONCERNS. AWAITING PLACEMENT.
--- NOTE | 2022-02-15 04:44 | NUR ---
PT UP MOST OF THE NIGHT REQUESTING HENRRY CRACKERS. PT STABLE ON HIS FEET, NO PRNS GIVEN.
--- NOTE | 2022-02-15 17:24 | NUR ---
Shift has been unremarkable. Client has been pleasant throughout day and has had no complaints. Left call light within reach.
--- NOTE | 2022-02-16 04:59 | NUR ---
PT UP AND DOWN MOST OF THE NIGHT REQUESTING HENRRY CRACKERS. REMOVED SOCKS AND PATIENTS TOE NAILS ARE SO LONG AND THICK THEY ARE GROWING TOWARDS HIS TOES AND CAUSING SKIN BREAKDOWN. DRESSING APPLIED TO PROTECT SKIN, PT NEEDS PEDIATRY TO ASSIST WITH CLIPPING NAILS.
--- NOTE | 2022-02-16 17:36 | NUR ---
Shift has been entirely unremarkable. Patient is cooperative with direction and pleasant to interact with. Slept intermittently throughout shift. Call light left within reach.
--- NOTE | 2022-02-17 18:15 | NUR ---
SHIFT SUMMARY PT A&OX4 AND IN PLEASENT MOOD T/O SHIFT. PODIATRY CONSULTED THIS SHIFT, PT L GREAT TOE NAIL CUT, PT STATES HE IS MUCH MORE COMFORTABLE. PT TOLERATING PO INTAKE WELL. AMB. IND W/ STEADY GAIT T/O SHIFT. CALL LIGHT W/IN REACH, VSS. AWAITING PLACEMENT @ THIS TIME.
--- NOTE | 2022-02-18 04:59 | NUR ---
A&SAMINA SELF. CONFUSED/FORGETFUL AT TIMES. V/S WNL. NO IV ACCESS. BSC,1-ASSIST WITH FWW & GB. CARDIAC DIET. PILLS WHOLE IN APPLE SAUCE. JORGE STOCKINGS AND LE'S EXTREMITIES IN PLACE TO HELP WITH EDEMA. VOIDS W/O DIFFICULTY. NO BM THIS SHIFT. WILL CONTINUE TO MONITOR.
--- NOTE | 2022-02-18 05:04 | NUR ---
A&OX4. V/S WNL. INDEPENDANT. V/S WNL. NO IV ACCESS. PT VOIDS W/O DIFFICULTY. PT STATED, " I HAD A BM TODAY. IT WAS NORMAL" NO BM THIS SHIFT. CARDIAC DIET. PILL WHOLE WITH WATER. WILL CONTINUE TO MONITOR.
[2022-02-18 13:20] LABS: Influenza A, PCR NEGATIVE (NEGATIVE); Influenza B, PCR NEGATIVE (NEGATIVE); Resp Syncytial Virus, PCR NEGATIVE (NEGATIVE); SARS-Cov-2 (COVID-19) PCR, MMC NEGATIVE (NEGATIVE)
[2022-02-18] MEDS ORDERED: Acetaminophen325 M1 PO (13:46)
[2022-02-18] MEDS ORDERED: Calcium Carbon500 MG PO (13:46)
[2022-02-18] MEDS ORDERED: DOCU100 PO (13:47)
[2022-02-18] MEDS ORDERED: NICO21TP TOP (13:47)
[2022-02-18] MEDS ORDERED: MIRALAX17 GM PO (13:48)
[2022-02-18] MEDS ORDERED: QUET100 PO (13:49)
[2022-02-18] MEDS ORDERED: QUET25 PO (13:49)
--- NOTE | 2022-02-18 14:00 | NUR ---
PT REPORT CALLED TO [facility] @ THIS TIME, EXPECTING TRANSPORT @ 1500. PT PACKED UP, NO IV, TOLERATING PO INTAKE, IND. IN ROOM, A&OX4 @ THIS TIME.
--- NOTE | 2022-02-18 15:30 | NUR ---
TRANSPORT @ THIS TIME TO [facility] , [facility] IN T[facility].
== END 2022-02-18 15:31 | disposition home or self-care (01) ==
LOC: ER 11:31 → MEDS 11:32
PROVIDERS: Emergency Medicine; Internal Medicine; Student in an Organized Health Care Education/Training Program; ADMIT Internal Medicine
DX: G93.41 Metabolic encephalopathy (principal); R94.31 Abnormal electrocardiogram [ECG] [EKG]; E87.1 Hypo-osmolality and hyponatremia; E87.0 Hyperosmolality and hypernatremia; G30.9 Alzheimer's disease, unspecified; F02.81 Dementia in other diseases classified elsewhere, unspecified severity, with behavioral disturbance; E43 Unspecified severe protein-calorie malnutrition; E86.0 Dehydration; E87.6 Hypokalemia; R60.0 Localized edema; E87.8 Other disorders of electrolyte and fluid balance, not elsewhere classified; J44.9 Chronic obstructive pulmonary disease, unspecified; I10 Essential (primary) hypertension; F17.200 Nicotine dependence, unspecified, uncomplicated; B35.1 Tinea unguium; Z20.822 Contact with and (suspected) exposure to COVID-19
CPT/HCPCS: 0241U; 36415; 51701; 70450; 71045; 80048; 80053; 81001; 82550; 82947; 83735; 84134; 84443; 85025; 87086; 93005; 93010; 97110-CQ; 97116-CQ; 97129-GO-CO; 97130-GO-CO; 97161; 97166; 97530; 97530-CQ; 97535; 99285-25; A9270; G0378; J1630; J1650; J1940; J7030; J7042; J7120

== ENCOUNTER 2022-03-10 21:38 | Emergency (ER) | payer MEDICARE ==
[~2022-03-10] VITALS: Ht 177.8 cm; Wt 61.2 kg
[~2022-03-10 21:38] MED LIST: ADALAT CC60 M1 PO; Acetaminophen325 M1 PO; Calcium Carbon500 MG PO; DOCU100 PO; LIPITOR80 MG PO; METO100 PO; MIRALAX17 GM PO; NICO21TP TOP; QUET100 PO; QUET25 PO
== END 2022-03-10 23:15 | disposition home or self-care (01) ==
LOC: ER 21:38
DX: Z00.8 Encounter for other general examination (principal); Z88.2 Allergy status to sulfonamides; Z79.899 Other long term (current) drug therapy; J44.9 Chronic obstructive pulmonary disease, unspecified; I10 Essential (primary) hypertension; F17.200 Nicotine dependence, unspecified, uncomplicated
CPT/HCPCS: 93005; 93010; 99284-25

== ENCOUNTER 2023-01-17 20:19 | Emergency (ER) | payer MEDICARE, OTHER ==
[~2023-01-17] VITALS: Ht 182.9 cm; Wt 81.7 kg
[2023-01-17 20:45] VITALS: BP 157/73
[2023-01-17] MEDS ORDERED: OMEP20ER (20:55)
[2023-01-17] MEDS ORDERED: METO50 PO (20:55)
[2023-01-17] MEDS ORDERED: QUETIAPINE FUMA5012 PO (20:56)
[2023-01-17] MEDS ORDERED: MELA3 PO (20:58)
[2023-01-17] MEDS ORDERED: QUET25 PO (20:59)
[2023-01-18 02:30] LABS: Source, Urine Straight Cath
[2023-01-18 02:33] LABS: BASOPHILS ABSOLUTE AUTO 0.08 K/mm3 (0.00-0.23); BASOPHILS PERCENT AUTO 1 % (0-2); EOSINOPHILS ABSOLUTE AUTO 0.32 K/mm3 (0.00-0.68); EOSINOPHILS PERCENT AUTO 4 % (0-6); Hematocrit 45.5 % (37.0-53.0); Hemoglobin 14.5 g/dL (13.5-17.5); IMMATURE GRAN ABSOLUTE AUTO 0.02 K/mm3 (0.00-0.10); IMMATURE GRAN PERCENT AUTO 0 % (0-1); LYMPHOCYTES ABSOLUTE AUTO 2.21 K/mm3 (0.84-5.20); LYMPHOCYTES PERCENT AUTO 28 % (21-46); MONOCYTES ABSOLUTE AUTO 0.87 K/mm3 (0.16-1.47); MONOCYTES PERCENT AUTO 11 % (4-13); Mean Corpuscular HGB 28.9 pg (26.0-34.0); Mean Corpuscular HGB Conc 31.9 g/dL (31.5-36.5); Mean Corpuscular Volume 91 fL (80-100); Mean Platelet Volume 11.2 fL (9.1-12.4); NEUTROPHILS ABSOLUTE AUTO 4.45 K/mm3 (1.96-9.15); NEUTROPHILS PERCENT AUTO 56 % (41-73); Platelet Count 184 K/mm3 (150-400); RDW Coefficient Variation 13.1 % (11.7-14.2); RDW Standard Deviation 43.8 fL (35.1-46.3); Red Blood Cell Count 5.01 M/mm3 (4.30-5.90); White Blood Cell Count 7.95 K/mm3 (4.00-11.30)
[2023-01-18 02:40] LABS: Appearance, Urine Clear (Clear); Bilirubin, Urine Neg (Neg); Blood, Urine 2+ (Neg); Color, Urine Yellow (P-Yellow); Glucose Qualitative, Urine Neg (Neg); Ketones, Urine Neg (Neg); Leukocyte Esterase, Urine Neg (Neg); Nitrite, Urine Neg (Neg); Protein, Urine 1+ (Neg); Specific Gravity, Urine 1.025 (1.003-1.022); Urobilinogen, Urine NORM (Normal)
[2023-01-18 02:51] LABS: Albumin, Blood 3.5 g/dL (3.4-5.0); Bilirubin, Total 0.3 mg/dL (0.1-1.0); Bun/Creatinine Ratio 33.8 (12.0-20.0); Calcium, Blood 9.3 mg/dL (8.5-10.1); Creatinine, Blood 0.8 mg/dL (0.60-1.20); Globulin, Blood 3.4 g/dL (2.2-4.0); Potassium, Blood 4.1 mmol/L (3.5-5.5); Total Protein, Blood 6.9 g/dL (6.4-8.2)
[2023-01-18 02:53] LABS: Bacteria Rare /hpf; Hyaline Casts 0-2 /lpf (0-2); Red Blood Cells, Urine 0-2 /hpf (0-2); Squamous Epithelial Cells Not Seen /hpf (Few); White Blood Cells, Urine 0-2 /hpf (0-5)
== END 2023-01-18 04:53 | disposition home or self-care (01) ==
LOC: ER 20:19
PROVIDERS: Student in an Organized Health Care Education/Training Program
DX: R41.0 Disorientation, unspecified (principal); F03.90 Unspecified dementia, unspecified severity, without behavioral disturbance, psychotic disturbance, mood disturbance, and anxiety; Z88.8 Allergy status to other drugs, medicaments and biological substances; Z88.6 Allergy status to analgesic agent; Z88.2 Allergy status to sulfonamides; Z88.1 Allergy status to other antibiotic agents; Z79.899 Other long term (current) drug therapy; J44.9 Chronic obstructive pulmonary disease, unspecified; I10 Essential (primary) hypertension; F17.200 Nicotine dependence, unspecified, uncomplicated
CPT/HCPCS: 80053; 81001; 85025; 99285-25

== ENCOUNTER 2023-03-28 10:43 | Emergency (ER) | payer MEDICARE, OTHER ==
[~2023-03-28] VITALS: Ht 177.8 cm; Wt 59.0 kg
[~2023-03-28 10:43] MED LIST changes: +MELA3 PO; +METO50 PO; +OMEP20ER; +QUETIAPINE FUMA5012 PO
[2023-03-28 10:49] VITALS: BP 151/78
--- NOTE | 2023-03-28 13:37 | NUR ---
Referral received from in ER. Discussed with ER social service manager and staff person at [facility] [phone]. Pt has guardian Giyuliana Infante [phone] Pt has hx of dementia and MS. He has been at [facility] for approx. one year. He was in our ER in recent weeks/months due to altered LOC and becoming non- verbal in recent months. I attempted to evaluate pt. He is lying in semi-fowlers position on gurney. He is awake, appears alert. He is nonverbal and does not nod or make any facial expression in response to greeting, questions or conversation. T/c to [facility] for additional information and history. Staff person states he is able to feed self with supervision/assist but is losing weight in recent weeks. She states that when pt was initially placed at [facility] he did gain weight then. Staff person confirms that a Hospice consult was discussed with his guardian and she is unsure if hospice had evaluated or if they were still waiting for them to visit. She states facility/guardian would be happy with any of the three local hospice agencies, and would prefer the one that could evaluate at the earliest date. This was reported to social service manager.
== END 2023-03-28 17:19 | disposition home or self-care (01) ==
LOC: ER 10:43
DX: F03.90 Unspecified dementia, unspecified severity, without behavioral disturbance, psychotic disturbance, mood disturbance, and anxiety (principal); R40.4 Transient alteration of awareness; R47.89 Other speech disturbances; F17.200 Nicotine dependence, unspecified, uncomplicated; I10 Essential (primary) hypertension; J44.9 Chronic obstructive pulmonary disease, unspecified; Z86.718 Personal history of other venous thrombosis and embolism; Z79.01 Long term (current) use of anticoagulants; Z88.1 Allergy status to other antibiotic agents; Z88.2 Allergy status to sulfonamides; Z88.6 Allergy status to analgesic agent; Z88.8 Allergy status to other drugs, medicaments and biological substances; Z79.899 Other long term (current) drug therapy
CPT/HCPCS: 99284

== ENCOUNTER 2023-04-11 10:35 | Inpatient (IN) | payer MEDICARE, OTHER ==
[~2023-04-11] VITALS: Ht 175.3 cm; Wt 69.5 kg
--- NOTE | 2023-04-11 16:18 | NUR ---
Called [facility] to review pt. Called guardian. She stated he some inprovements after his stroke when he moved to [facility]. Eating a little more and gained some weight she states the doctor suggested waiting on hospice care. Pt is ashen and flushed has been nonverbal in hospital. Grimaces with assessment he looks uncomfortable. Concerns on how he will tolerate anesthesia. Spoke with guardian. She was hopeful we could fix the hip but understand may not be realistic. She will appreciate the surgeon and anesthesiologist giving input. advised either way he need to transition to hospice or the suffering will be to great. awaiting plan for surgical team. Discussed the case indepth with the hospitalist. Will follow up with staff. [facility] does not have preferance for hospice team. [facility]. updated [facility] of possible admit tomorrow.
[2023-04-11 17:08] LABS: Albumin, Blood 3.3 g/dL (3.4-5.0); Albumin/Globulin Ratio 0.9 (0.8-1.8); Bilirubin, Total 0.7 mg/dL (0.1-1.0); Bun/Creatinine Ratio 26.5 (12.0-20.0); Calcium, Blood 9.3 mg/dL (8.5-10.1); Creatinine, Blood 0.75 mg/dL (0.60-1.20); Globulin, Blood 3.8 g/dL (2.2-4.0); Potassium, Blood 3.6 mmol/L (3.5-5.5); Total Protein, Blood 7.1 g/dL (6.4-8.2)
[2023-04-11 18:24] LABS: BASOPHILS ABSOLUTE AUTO 0.04 K/mm3 (0.00-0.23); BASOPHILS PERCENT AUTO 0 % (0-2); EOSINOPHILS ABSOLUTE AUTO 0.04 K/mm3 (0.00-0.68); EOSINOPHILS PERCENT AUTO 0 % (0-6); Hematocrit 41.2 % (37.0-53.0); Hemoglobin 13.6 g/dL (13.5-17.5); IMMATURE GRAN ABSOLUTE AUTO 0.04 K/mm3 (0.00-0.10); IMMATURE GRAN PERCENT AUTO 0 % (0-1); LYMPHOCYTES ABSOLUTE AUTO 0.97 K/mm3 (0.84-5.20); LYMPHOCYTES PERCENT AUTO 10 % (21-46); MONOCYTES PERCENT AUTO 11 % (4-13); Mean Corpuscular HGB 29.5 pg (26.0-34.0); Mean Corpuscular Volume 89 fL (80-100); Mean Platelet Volume 10.8 fL (9.1-12.4); NEUTROPHILS ABSOLUTE AUTO 7.38 K/mm3 (1.96-9.15); NEUTROPHILS PERCENT AUTO 78 % (41-73); Platelet Count 179 K/mm3 (150-400); RDW Coefficient Variation 13.4 % (11.7-14.2); RDW Standard Deviation 43.8 fL (35.1-46.3); Red Blood Cell Count 4.61 M/mm3 (4.30-5.90); White Blood Cell Count 9.47 K/mm3 (4.00-11.30)
[2023-04-11 18:26] LABS: Source, Urine Clean Catch
[2023-04-11 18:44] VITALS: BP 180/93
[2023-04-11 19:20] LABS: Bilirubin, Urine Neg (Neg); Blood, Urine Neg (Neg); Glucose Qualitative, Urine 1+ (Neg); Ketones, Urine 2+ (Neg); Leukocyte Esterase, Urine Neg (Neg); Nitrite, Urine Neg (Neg); Protein, Urine 2+ (Neg); Urobilinogen, Urine 1+ (Normal)
[2023-04-11 19:22] LABS: Color, Urine Yellow (P-Yellow)
[2023-04-11 19:23] LABS: Appearance, Urine Clear (Clear); Mucus Heavy (0-Heavy); Red Blood Cells, Urine 0-2 /hpf (0-2); White Blood Cells, Urine 0-2 /hpf (0-5)
[2023-04-11 19:24] LABS: Bacteria Few /hpf; Hyaline Casts 0-2 /lpf (0-2); Squamous Epithelial Cells Not Seen /hpf (Few)
--- NOTE | 2023-04-11 19:31 | NUR ---
PT ARRIVED TO THE ROOM AT APPROXIMATELY 1834. PT WAS TRANSFERRED TO THE BED FROM THE [facility], PT YELLS OUT WITH MOVEMENT. REPORT GIVEN TO YUDI ROGERS. PT RESTING IN BED, CALL LIGHT WITHIN REACH, BED ALARM IN PLACE.
[2023-04-11 21:37] VITALS: BP 180/84
[2023-04-12] VITALS (22 sets, daily range): BP systolic 124–170; BP diastolic 52–82
[2023-04-12 03:53] LABS: BASOPHILS ABSOLUTE AUTO 0.04 K/mm3 (0.00-0.23); BASOPHILS PERCENT AUTO 1 % (0-2); EOSINOPHILS ABSOLUTE AUTO 0.08 K/mm3 (0.00-0.68); EOSINOPHILS PERCENT AUTO 1 % (0-6); Hematocrit 38.6 % (37.0-53.0); Hemoglobin 12.7 g/dL (13.5-17.5); IMMATURE GRAN ABSOLUTE AUTO 0.02 K/mm3 (0.00-0.10); IMMATURE GRAN PERCENT AUTO 0 % (0-1); LYMPHOCYTES PERCENT AUTO 12 % (21-46); MONOCYTES ABSOLUTE AUTO 1.02 K/mm3 (0.16-1.47); MONOCYTES PERCENT AUTO 12 % (4-13); Mean Corpuscular HGB 29.1 pg (26.0-34.0); Mean Corpuscular HGB Conc 32.9 g/dL (31.5-36.5); Mean Corpuscular Volume 89 fL (80-100); Mean Platelet Volume 10.7 fL (9.1-12.4); NEUTROPHILS ABSOLUTE AUTO 6.18 K/mm3 (1.96-9.15); NEUTROPHILS PERCENT AUTO 74 % (41-73); Platelet Count 195 K/mm3 (150-400); RDW Coefficient Variation 13.3 % (11.7-14.2); RDW Standard Deviation 43.8 fL (35.1-46.3); Red Blood Cell Count 4.36 M/mm3 (4.30-5.90); White Blood Cell Count 8.34 K/mm3 (4.00-11.30)
[2023-04-12 04:10] LABS: Bun/Creatinine Ratio 22.5 (12.0-20.0); Calcium, Blood 8.5 mg/dL (8.5-10.1); Creatinine, Blood 0.71 mg/dL (0.60-1.20); Potassium, Blood 3.3 mmol/L (3.5-5.5)
--- NOTE | 2023-04-12 11:35 | NUR ---
TO DAY SURGERY VIA HOSPITAL BED
--- NOTE | 2023-04-12 11:59 | NUR ---
PT HAS 20G IV TO LEFT HAND THAT FLUSHES WELL AND FLOWS TO GRAVITY.
--- NOTE | 2023-04-12 15:40 | NUR ---
POST OP ARRIVAL TO SURG FLOOR DROWSY BUT OPENS EYES TO NAME. DOESN'T NOD OR SHAKE HEAD WHEN ASKED ?'s, BUT DID SMILE ONCE & SMILE EQUAL. PPP. BRISK CAP REFILL. DOESN'T WIGGLE TOES WHEN ASKED. R HIP w/ BULKY DRSG. NO DRNG. JORGE DOWLING & SCD's IN PLACE.
[2023-04-13 04:30] VITALS: BP 157/66
--- NOTE | 2023-04-13 04:52 | NUR ---
SHIFT SUMMARY POD 1 R BANDAR HIP, ON BEDREST. NO ACUTE CHANGES OVERNIGHT. PT ALERT, RESPONDS TO PAIN/ EXTERNAL STIMULI. PT NON VERBAL x3 MO DUE TO PREVIOUS CVA. HX DEMENTIA. PT O2 SAT >92% ON RA, TEMP MILDLY ELEVATED, VS WNL FOR PT. PT INCONTINENT, FULL BED CHANGE OVERNIGHT WITH LARGE VOLUME URINATION, ATTENDS IN PLACE WITH EXTRA PAD. PT TOLERATING PO WELL. CALL LIGHT WITHIN REACH, BED IN LOWEST POSITION, WILL REPORT TO DAY NURSE.
[2023-04-13 05:03] LABS: BASOPHILS ABSOLUTE AUTO 0.04 K/mm3 (0.00-0.23); BASOPHILS PERCENT AUTO 0 % (0-2); EOSINOPHILS ABSOLUTE AUTO 0.08 K/mm3 (0.00-0.68); EOSINOPHILS PERCENT AUTO 1 % (0-6); Hematocrit 37.9 % (37.0-53.0); Hemoglobin 12.2 g/dL (13.5-17.5); IMMATURE GRAN ABSOLUTE AUTO 0.06 K/mm3 (0.00-0.10); IMMATURE GRAN PERCENT AUTO 1 % (0-1); LYMPHOCYTES ABSOLUTE AUTO 0.71 K/mm3 (0.84-5.20); LYMPHOCYTES PERCENT AUTO 7 % (21-46); MONOCYTES ABSOLUTE AUTO 0.73 K/mm3 (0.16-1.47); MONOCYTES PERCENT AUTO 7 % (4-13); Mean Corpuscular HGB 29.1 pg (26.0-34.0); Mean Corpuscular HGB Conc 32.2 g/dL (31.5-36.5); Mean Corpuscular Volume 91 fL (80-100); Mean Platelet Volume 11.3 fL (9.1-12.4); NEUTROPHILS ABSOLUTE AUTO 9.08 K/mm3 (1.96-9.15); NEUTROPHILS PERCENT AUTO 85 % (41-73); Platelet Count 191 K/mm3 (150-400); RDW Coefficient Variation 13.2 % (11.7-14.2); RDW Standard Deviation 43.7 fL (35.1-46.3); Red Blood Cell Count 4.19 M/mm3 (4.30-5.90)
[2023-04-13 05:27] LABS: Magnesium, Blood 1.8 mg/dL (1.6-2.4)
[2023-04-13 05:28] LABS: Bun/Creatinine Ratio 18.3 (12.0-20.0); Calcium, Blood 8.3 mg/dL (8.5-10.1); Creatinine, Blood 0.76 mg/dL (0.60-1.20); Potassium, Blood 4.1 mmol/L (3.5-5.5)
[2023-04-13 07:24] VITALS: BP 159/67
--- NOTE | 2023-04-13 09:32 | NUR ---
Placed call to pt's guardian Sylvia to clarify; she states she has already called [facility] regarding discharge. Information given to animal care taker.
[2023-04-13 14:25] VITALS: BP 156/68
--- NOTE | 2023-04-13 15:30 | NUR ---
SHIFT SUMMARY: POD 1 RIGHT BANDAR HIP - POSTERIOR NO SIGNIFICANT CHANGES DURING SHIFT. PAIN IS MANAGED WITH PO TYLENOL AND TRAMADOL GIVEN IN APPLESAUCE OR PUDDING. HIS RIGHT HIP HAS GAUZE AND FOAM TAPE THAT IS C/D/I. HE IS A 2 PERSON MODERATE ASSIST AND NEEDS TO BE REMINDED ON INSTRUCTIONS. PATIENT TOLERATES PO INTAKE WHEN ALL OF HIS FOOD IS OPENED/CUT UP FOR HIM AND THEN HE CAN FEED HIMSELF. PATIENT IS INCONTINENT AND HAS BEEN CHANGED PRN WITH ATTENDS. HE IS SITTING UP IN THE RECLINER WITH TAB ALARM ON A PRECAUTION AND CALL LIGHT WITHIN REACH. THE PLAN IS TO DISCHARGE TOMORROW BACK TO [facility] WITH HOME HEALTH IF STILL APPROPRIATE TO DO SO.
[2023-04-13 19:28] VITALS: BP 145/61
[2023-04-14 03:36] VITALS: BP 172/63
--- NOTE | 2023-04-14 04:05 | NUR ---
SHIFT SUMMARY POD 2 POSTERIOR R BANDAR HIP. NO ACUTE CHANGES OVERNIGHT. AQUACEL DRESSING C/D/I. MEDICATED PER EMAR, MEDICATIONS GIVEN IN PUDDING. PT ALERT, AND FOLLOWS MINIMAL DIRECTION. PT INCONTINENT, ATTENDS IN PLACE WITH EXTRA PAD. VS WNL FOR PT. CALL LIGHT WITHIN REACH, BED ALARM ON & IN LOWEST POSTION, WILL REPORT TO DAY NURSE.
[2023-04-14 07:26] VITALS: BP 182/82
[2023-04-14 07:27] VITALS: BP 187/76
--- NOTE | 2023-04-14 10:07 | NUR ---
04/14/23 1007 Leslee Sahu VERIFICATIONS: EDIT CHART.
--- NOTE | 2023-04-14 12:45 | NUR ---
DISCHARGE PT DISCHARGE TO SNF APROX 1245. PACKET GIVEN TO PACKAGING MECHANIC.
--- NOTE | 2023-04-14 13:03 | NUR ---
DISCHARGE PT LEFT VIA TRANSPORT FOR [facility], REPORT CALLED TO VIOLETA NURSE AT [facility]. ALL QUESTIONS ANSWERED. PACKET SENT FOR PATIENT WITH TRANSPORT. [facility] WITH PATIENT. ARMEN REMAINED CDI, PT NEEDING ASSIST WITH TRANSFERS 1 PER OR 2 WHEN HE BECOMES MORE TIRED.
== END 2023-04-14 12:45 | disposition home or self-care (01) | DRG 522 ==
LOC: ER 10:35 → SURS 10:36 → MEDS 10:36 → SURS 18:41
PROVIDERS: Family Medicine; Orthopaedic Surgery; ADMIT Internal Medicine
PROC: 0SRR01Z Replacement of Right Hip Joint, Femoral Surface with Metal Synthetic Substitute, Open Approach (ICD-10-PCS; principal; 2023-04-12 12:30)
DX: S72.041A Displaced fracture of base of neck of right femur, initial encounter for closed fracture (principal); F02.C18 Dementia in other diseases classified elsewhere, severe, with other behavioral disturbance; G30.9 Alzheimer's disease, unspecified; W18.30XA Fall on same level, unspecified, initial encounter; G35 Multiple sclerosis; J44.9 Chronic obstructive pulmonary disease, unspecified; E78.5 Hyperlipidemia, unspecified; K21.9 Gastro-esophageal reflux disease without esophagitis; I10 Essential (primary) hypertension; F17.210 Nicotine dependence, cigarettes, uncomplicated; Z88.2 Allergy status to sulfonamides; Z88.8 Allergy status to other drugs, medicaments and biological substances; Z79.899 Other long term (current) drug therapy
CPT/HCPCS: 36415; 70450; 72170; 73502; 80048; 80053; 81001; 83735; 84100; 85025; 96360-59; 96361-59; 96374; 97110; 97162; 97166; 97530; 97535; 99285-25; A9270; C1776; G0378; J0171; J0690; J0735; J1650; J1885; J2250; J2704; J2795; J3010; J3370; J7030; J7060; J7120

== ENCOUNTER 2023-09-23 09:10 | Emergency (ER) | payer MEDICARE, OTHER ==
[~2023-09-23] VITALS: Ht 172.7 cm; Wt 68.0 kg
[2023-09-23] MEDS ORDERED: TRAM50 PO (09:25)
[2023-09-23] MEDS ORDERED: Acetaminophen 500 MG Tab PO ONE (09:40)
[2023-09-23 12:29] VITALS: BP 180/90
== END 2023-09-23 12:30 | disposition home or self-care (01) ==
LOC: ER 09:10
DX: S70.02XA Contusion of left hip, initial encounter (principal); M16.12 Unilateral primary osteoarthritis, left hip; W18.30XA Fall on same level, unspecified, initial encounter; Z88.8 Allergy status to other drugs, medicaments and biological substances; Z88.6 Allergy status to analgesic agent; Z88.2 Allergy status to sulfonamides; Z88.1 Allergy status to other antibiotic agents; Z79.899 Other long term (current) drug therapy; J44.9 Chronic obstructive pulmonary disease, unspecified; I10 Essential (primary) hypertension; F17.200 Nicotine dependence, unspecified, uncomplicated
CPT/HCPCS: 73502; 99283-25; A9270

== ENCOUNTER 2023-09-23 21:59 | Inpatient (IN) | payer MEDICARE, OTHER ==
[~2023-09-23] VITALS: Ht 177.8 cm; Wt 63.3 kg
[~2023-09-23 21:59] MED LIST changes: +TRAM50 PO
[2023-09-23] MEDS ORDERED: NS 1,000 ML IV SCH (23:20)
[2023-09-23 23:43] LABS: BASOPHILS ABSOLUTE AUTO 0.05 K/mm3 (0.00-0.23); BASOPHILS PERCENT AUTO 0 % (0-2); EOSINOPHILS ABSOLUTE AUTO 0.04 K/mm3 (0.00-0.68); EOSINOPHILS PERCENT AUTO 0 % (0-6); Hematocrit 41.7 % (37.0-53.0); Hemoglobin 13.3 g/dL (13.5-17.5); IMMATURE GRAN ABSOLUTE AUTO 0.08 K/mm3 (0.00-0.10); IMMATURE GRAN PERCENT AUTO 1 % (0-1); LYMPHOCYTES PERCENT AUTO 4 % (21-46); MONOCYTES ABSOLUTE AUTO 0.91 K/mm3 (0.16-1.47); MONOCYTES PERCENT AUTO 6 % (4-13); Mean Corpuscular HGB 27.5 pg (26.0-34.0); Mean Corpuscular HGB Conc 31.9 g/dL (31.5-36.5); Mean Corpuscular Volume 86 fL (80-100); NEUTROPHILS ABSOLUTE AUTO 13.54 K/mm3 (1.96-9.15); NEUTROPHILS PERCENT AUTO 89 % (41-73); Platelet Count 242 K/mm3 (150-400); RDW Coefficient Variation 13.2 % (11.7-14.2); RDW Standard Deviation 41.4 fL (35.1-46.3); Red Blood Cell Count 4.83 M/mm3 (4.30-5.90); White Blood Cell Count 15.22 K/mm3 (4.00-11.30)
[2023-09-24] VITALS (16 sets, daily range): BP systolic 104–192; BP diastolic 59–131
[2023-09-24 00:13] LABS: Albumin, Blood 3.4 g/dL (3.4-5.0); Bilirubin, Total 0.4 mg/dL (0.1-1.0); Bun/Creatinine Ratio 21.3 (12.0-20.0); Creatinine, Blood 0.85 mg/dL (0.60-1.20); Globulin, Blood 3.4 g/dL (2.2-4.0); Potassium, Blood 3.9 mmol/L (3.5-5.5); Total Protein, Blood 6.8 g/dL (6.4-8.2)
[2023-09-24 00:54] LABS: Influenza A, PCR NEGATIVE (NEGATIVE); Influenza B, PCR NEGATIVE (NEGATIVE); Resp Syncytial Virus, PCR NEGATIVE (NEGATIVE); SARS-Cov-2 (COVID-19) PCR, MMC NEGATIVE (NEGATIVE)
[2023-09-24 01:57] LABS: Source, Urine Straight Cath
[2023-09-24 02:15] LABS: Bilirubin, Urine Neg (Neg); Blood, Urine Neg (Neg); Glucose Qualitative, Urine Neg (Neg); Ketones, Urine 1+ (Neg); Leukocyte Esterase, Urine Neg (Neg); Nitrite, Urine Neg (Neg); Protein, Urine 2+ (Neg); Urobilinogen, Urine 1+ (Normal); pH, Urine 6.5 (5.0-8.0)
[2023-09-24 02:23] LABS: Appearance, Urine Clear (Clear); Color, Urine Yellow (P-Yellow)
[2023-09-24 02:25] LABS: Bacteria Few /hpf; Hyaline Casts 0-2 /lpf (0-2); Mucus Light (0-Heavy); Red Blood Cells, Urine 0-2 /hpf (0-2); Squamous Epithelial Cells Few /hpf (Few); White Blood Cells, Urine 0-2 /hpf (0-5)
[2023-09-24] MEDS ORDERED: FentaNYL Citrate 50 MCG/ML 2 ML Injection IV ONE ×2 (03:40→05:30)
[2023-09-24] MEDS ORDERED: FentaNYL Citrate 50 MCG/ML 2 ML Injection IV PRN (05:30)
[2023-09-24] MEDS ORDERED: FLU VACC QS2023-24(6MOS UP)/PF 60 MCG/0.5 ML SYRINGE IM ONE (05:30)
[2023-09-24] MEDS ORDERED: Acetaminophen 325 MG TABLET PO PRN (05:30)
[2023-09-24] MEDS ORDERED: HydrALAZINE HCl 20 MG / ML 1ML Vial IV STA (05:37)
[2023-09-24] MEDS ORDERED: HydrALAZINE HCl 20 MG / ML 1ML Vial IV PRN (06:00)
[2023-09-24] MEDS ORDERED: Acetaminophen 650 MG Supp PR ONE (10:40)
--- NOTE | 2023-09-24 17:36 | NUR ---
PT OUT OF ROOM FOR PROCEDURE AT THIS TIME.
[2023-09-24] MEDS ORDERED: Metoprolol Tartrate 5 ML IV ONE (17:37)
[2023-09-24] MEDS ORDERED: Ketamine HCl 100 MG / ML 5ML Vial ONE (17:54)
[2023-09-24] MEDS ORDERED: propofoL 20 ML IV ONE (17:55)
[2023-09-24] MEDS ORDERED: Metoprolol Tartrate 1 MG/ML 5 ML VIAL IV ONE (18:00)
[2023-09-24] MEDS ORDERED: CeFAZolin Sodium 2000 MG /100 ML BAG IV ONE (18:39)
[2023-09-24] MEDS ORDERED: Bupivacaine HCl 0.25% 30 ML Injection ONE (19:02)
[2023-09-24] MEDS ORDERED: Bupivacaine 0.5% HCl 5 MG/ML 30MLVIAL ONE (19:02)
[2023-09-24] MEDS ORDERED: Phenylephrine HCl 100 MCG/ML-NS 10MLSYR (1MG/10ML) ONE (19:02)
--- NOTE | 2023-09-24 19:11 | NUR ---
SHIFT SUMMARY S/P L HIP FX, A/O X1, NON VERBAL AND NO FAMILY WITH HIM AT TIME OF ADMISSION. PT ARRIVED TO THE FLOOR AROUND 1600 AND WAS TAKEN TO DAY SURGERY JUST AFTER 1700. REPORT GIVEN TO YUDI RN WHO WILL ASSUME CARE AFTER SURGERY.
[2023-09-24] MEDS ORDERED: CeFAZolin Sodium 2,000 MG in NS 50 ML IV SCH (19:30)
[2023-09-25 00:13] VITALS: BP 154/86
[2023-09-25] MEDS ORDERED: Metoprolol Tartrate 50 MG Tab PO SCH (01:35)
[2023-09-25] MEDS ORDERED: NS 250 ML IV PRN (02:15)
[2023-09-25] MEDS ORDERED: CeFAZolin Sodium 2,000 MG in NS 50 ML IV SCH (03:00)
[2023-09-25 03:19] VITALS: BP 136/73
--- NOTE | 2023-09-25 05:46 | NUR ---
SHIFT SUMMARY PT IS HERE POD#1 FOR A LEFT HIP NAILING RESULTING FROM AN UNWITNESSED FALL AT HIS FACILITY, [facility]. PT IS NON-VERBAL AND PULLED OFF ONE OF HIS AQUACEL DRESSINGS ON HIS LEFT HIP THIS SHIFT, TO WHICH THIS RN REPLACED. THE TELEMETRY DESK DID CALL THIS RN TO SAY THAT THE PATIENT'S HR WAS ELEVATING UP TO THE 150'S. ROAD SERVICE LOCKSMITH PROVIDER NOTIFIED AND PT'S HOME DOSE OF METOPROLOL TARTRATE WAS ORDERED. PT DID NOT SWALLOW THIS MEDICATION IMMEDIATELY AFTER ADMIN AND DID NOT WANT A DRINK OF WATER AFTER PLACING THE MED IN HIS MOUTH. PT'S HR DID DECREASE AFTER THE ADMIN OF THAT MED, DROPPING TO THE 100'S-110'S AND STAYING THERE FOR THE REMAINDER OF THE SHIFT. NO OTHER ACUTE EVENTS OCCURRED OVERNIGHT. BED IS IN LOWEST POSITION, CALL LIGHT IS WITHIN REACH.
[2023-09-25 07:10] VITALS: BP 151/78; BP 164/74
[2023-09-25 15:03] VITALS: BP 178/79
[2023-09-25 15:04] VITALS: BP 181/73
[2023-09-25] MEDS ORDERED: Calcium Carbonate 500 MG Tab Chew PO PRN (18:30)
[2023-09-25] MEDS ORDERED: TraMADol HCl 50 MG Tab PO PRN (18:35)
--- NOTE | 2023-09-25 19:32 | NUR ---
SHIFT SUMMARY POD1 L HIP NAILING, A/OX0-1 (SELF), NON VERBAL AT BASELINE SO HE IS UNABLE TO ANSWER QUESTIONS, HE DOES TRACK TO VOICE WHEN STAFF ARE IN THE ROOM TALKING TO HIM, HE GETS FIDGETY WHEN HIS PAIN STARTS COMING ON WHICH HAS BEEN MANAGED TODAY WITH TYLENOL. NO ACUTE EVENTS THIS SHIFT, CALL LIGHT IN REACH.
[2023-09-25 19:33] VITALS: BP 127/59
[2023-09-25] MEDS ORDERED: Atorvastatin 40 MG Tab PO SCH (21:00)
[2023-09-25] MEDS ORDERED: Docusate Sodium 100 MG UDC PO SCH (21:00)
[2023-09-25] MEDS ORDERED: QUEtiapine Fumarate 100 MG Tab PO SCH (21:00)
[2023-09-25] MEDS ORDERED: Melatonin 3 MG Tab PO SCH (21:00)
[2023-09-25] MEDS ORDERED: Docusate Sodium 100 MG Cap PO SCH (21:00)
[2023-09-25] MEDS ORDERED: Sennosides 8.6 MG Tab PO SCH (21:00)
[2023-09-26 03:47] VITALS: BP 155/63
--- NOTE | 2023-09-26 06:26 | NUR ---
SHIFT SUMMARY PT IS POD#2 FOR A LEFT HIP NAILING. PT HAS HAD AN UNEVENTFUL NIGHT WITH NO ACUTE EVENTS OCCURRING. TELE WAS DC'D AT THE BEGINNING OF THE SHIFT. PT TAKES HIS MEDS CRUSHED AND IN APPLESAUCE. BED IS IN LOWEST POSITION, CALL LIGHT IS WITHIN REACH.
[2023-09-26 07:00] LABS: BASOPHILS ABSOLUTE AUTO 0.04 K/mm3 (0.00-0.23); BASOPHILS PERCENT AUTO 0 % (0-2); EOSINOPHILS ABSOLUTE AUTO 0.01 K/mm3 (0.00-0.68); EOSINOPHILS PERCENT AUTO 0 % (0-6); Hematocrit 30.3 % (37.0-53.0); Hemoglobin 9.6 g/dL (13.5-17.5); IMMATURE GRAN ABSOLUTE AUTO 0.04 K/mm3 (0.00-0.10); IMMATURE GRAN PERCENT AUTO 0 % (0-1); LYMPHOCYTES ABSOLUTE AUTO 1.12 K/mm3 (0.84-5.20); LYMPHOCYTES PERCENT AUTO 12 % (21-46); MONOCYTES ABSOLUTE AUTO 1.08 K/mm3 (0.16-1.47); MONOCYTES PERCENT AUTO 12 % (4-13); Mean Corpuscular HGB 28.3 pg (26.0-34.0); Mean Corpuscular HGB Conc 31.7 g/dL (31.5-36.5); Mean Corpuscular Volume 89 fL (80-100); Mean Platelet Volume 10.3 fL (9.1-12.4); NEUTROPHILS ABSOLUTE AUTO 6.76 K/mm3 (1.96-9.15); NEUTROPHILS PERCENT AUTO 75 % (41-73); Platelet Count 195 K/mm3 (150-400); RDW Coefficient Variation 14.1 % (11.7-14.2); RDW Standard Deviation 46.3 fL (35.1-46.3); Red Blood Cell Count 3.39 M/mm3 (4.30-5.90); White Blood Cell Count 9.05 K/mm3 (4.00-11.30)
[2023-09-26 07:28] LABS: Bun/Creatinine Ratio 40.6 (12.0-20.0); Calcium, Blood 8.7 mg/dL (8.5-10.1); Creatinine, Blood 0.91 mg/dL (0.60-1.20); Potassium, Blood 3.8 mmol/L (3.5-5.5)
[2023-09-26 07:45] VITALS: BP 157/66
[2023-09-26] MEDS ORDERED: Omeprazole 20 MG CapCR PO SCH (09:00)
[2023-09-26] MEDS ORDERED: Dextrose 5% 1,000 ML IV SCH (14:50)
[2023-09-26] MEDS ORDERED: Polyethylene Glycol 3350 17 gm PO PRN (14:50)
[2023-09-26] MEDS ORDERED: Enoxaparin 40 MG/0.4 ML SYR SC SCH (15:00)
[2023-09-26 15:14] VITALS: BP 158/65
--- NOTE | 2023-09-26 17:42 | NUR ---
SHIFT SUMMARY POD2 L HIP NAILING, PT IS NON VERBAL AND RESPONDS TO VERBAL STIMULI, ABLE TO FEED HIMSELF WITH NO ISSUES THOUGH HIS PO FLUID INTAKE HAS BEEN ALMOST NON EXISTENT, TAKES MEDS CRUSHED IN SAUCE OR HE CHEWS THEM UP. PAIN MANAGED PER EMAR. NO ACUTE EVENTS THIS SHIFT, CALL LIGHT IN REACH.
[2023-09-26 19:57] VITALS: BP 174/84
[2023-09-27 04:08] VITALS: BP 161/70
--- NOTE | 2023-09-27 06:21 | NUR ---
SHIFT SUMMARY PT IS POD#3 FOR A LEFT HIP NAILING AFTER AN UNWITNESSED FALL AT HIS HOME, [facility]. PT IS NON-VERBAL AND PT WAS ABLE TO REST THE MAJORITY OF THE SHIFT W/NO ACUTE EVENTS OCCURRING OVERNIGHT. BED IS IN LOWEST POSITION, CALL LIGHT IS WITHIN REACH.
[2023-09-27 06:58] LABS: Bun/Creatinine Ratio 41.5 (12.0-20.0); Calcium, Blood 8.4 mg/dL (8.5-10.1); Creatinine, Blood 0.65 mg/dL (0.60-1.20); Potassium, Blood 3.2 mmol/L (3.5-5.5)
[2023-09-27 07:54] VITALS: BP 150/87
[2023-09-27] MEDS ORDERED: Potassium Chloride 10 Meq Tablet SA PO ONE (08:30)
[2023-09-27] MEDS ORDERED: Potassium Chloride 20 MEQ/15 ML UDC PO ONE (10:35)
[2023-09-27 14:52] VITALS: BP 138/80
--- NOTE | 2023-09-27 15:33 | NUR ---
REPORT CALLED TO [facility].
--- NOTE | 2023-09-27 17:13 | NUR ---
DISCHARGE REPORT CALLED TO [facility]. PT MEDICATED WITH TRAMADOL BEFORE DISCHARGE. DISCHARGE PACKET AND DRESSINGS SENT WITH PATIENT TO [facility]. JAKI SARMIENTO [facility] NOTIFIED THAT [facility] PLANNED TO ADMIT PT [place] BUT THEY HAVE BEEN UNABLE TO REACH THE PATIENT'S GARDIAN. JAKI STATED SHE WOULD ATTEMPT TO REACH OUT TO THE PATIENT'S GARDIAN.
== END 2023-09-27 16:23 | disposition hospice, home (50) | DRG 482 ==
LOC: ER 21:59 → ERHOLD 22:00 → SURS 22:00
PROVIDERS: Internal Medicine; Orthopaedic Surgery Sports Medicine; Student in an Organized Health Care Education/Training Program; ADMIT Internal Medicine
PROC: 0QS706Z Reposition Left Upper Femur with Intramedullary Internal Fixation Device, Open Approach (ICD-10-PCS; principal; 2023-09-24 17:45)
DX: S72.142A Displaced intertrochanteric fracture of left femur, initial encounter for closed fracture (principal); F03.90 Unspecified dementia, unspecified severity, without behavioral disturbance, psychotic disturbance, mood disturbance, and anxiety; I10 Essential (primary) hypertension; G35 Multiple sclerosis; Z51.5 Encounter for palliative care; J44.9 Chronic obstructive pulmonary disease, unspecified; W18.30XA Fall on same level, unspecified, initial encounter; R00.0 Tachycardia, unspecified; E78.5 Hyperlipidemia, unspecified; Z11.52 Encounter for screening for COVID-19; S70.02XA Contusion of left hip, initial encounter; M16.12 Unilateral primary osteoarthritis, left hip; Z88.8 Allergy status to other drugs, medicaments and biological substances; Z88.6 Allergy status to analgesic agent; Z88.2 Allergy status to sulfonamides; Z88.1 Allergy status to other antibiotic agents; Z79.899 Other long term (current) drug therapy; F17.200 Nicotine dependence, unspecified, uncomplicated
CPT/HCPCS: 0241U; 36415; 51702; 51798; 70450; 71045; 72125; 73502; 73552; 74177; 80048; 80053; 81001; 83735; 85025; 93005; 93010; 94762; 96361; 96374; 96375; 96376; 97162; 97530; 99283-25; 99285-25; A9270; C1713; C1769; G0378; J0360; J0690; J1650; J2371; J2704; J3010; J7030; J7050; J7070; Q9967